=== PATIENT | male | born 1980 | race Two or more races ===

== ENCOUNTER 2023-01-18 09:00 | Outpatient (REF) | payer MEDICAID, SELFPAY ==
[2023-01-18 10:27] LABS: Alanine Aminotransferase 175 U/L (0-40); Albumin Level 3.7 g/dL (3.5-5.0); Alkaline Phosphatase 137 U/L (39-117); Aspartate Amino Transferase 129 U/L (5-37); Bilirubin Direct 0.2 mg/dL (0.0-0.5); Bilirubin Total 0.5 mg/dL (0.0-1.0); Total Protein 8.6 g/dL (6.5-8.0)
[2023-01-20 03:31] LABS: Syphilis Screen Nonreactive (Nonreactive)
== END 2023-01-18 09:01 | disposition home or self-care (01) ==
LOC: HO.LAB 09:00
PROVIDERS: Visit Provider Family Medicine
DX: F11.20 Opioid dependence, uncomplicated (principal)
CPT/HCPCS: 36415; 80076; 86780